=== PATIENT | male | born 2000 | race Caucasian/White ===

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

== ENCOUNTER 2024-02-09 02:27 | Emergency (ER) | payer OTHER ==
[~2024-02-09] VITALS: Ht 180.3 cm; Wt 83.9 kg
[~2024-02-09 02:27] MED LIST changes: +Zofran Odt4 MG PO
[2024-02-09] MEDS ORDERED: AIRSUPRA 90-810.7 GM INH (02:51)
[2024-02-09] MEDS ORDERED: Ondansetron HCl 2 MG / ML 2ML Vial IV ONE (02:55)
[2024-02-09] MEDS ORDERED: NS 1,000 ML IV SCH (02:55)
[2024-02-09] MEDS ORDERED: Ketorolac Tromethamine 30mg Vial IV ONE (03:25)
[2024-02-09 03:26] LABS: BASOPHILS ABSOLUTE AUTO 0.04 K/mm3 (0.00-0.23); BASOPHILS PERCENT AUTO 1 % (0-2); EOSINOPHILS ABSOLUTE AUTO 0.33 K/mm3 (0.00-0.68); EOSINOPHILS PERCENT AUTO 4 % (0-6); Hematocrit 42.8 % (37.0-53.0); Hemoglobin 14.8 g/dL (13.5-17.5); IMMATURE GRAN ABSOLUTE AUTO 0.07 K/mm3 (0.00-0.10); IMMATURE GRAN PERCENT AUTO 1 % (0-1); LYMPHOCYTES PERCENT AUTO 34 % (21-46); MONOCYTES ABSOLUTE AUTO 0.34 K/mm3 (0.16-1.47); MONOCYTES PERCENT AUTO 4 % (4-13); Mean Corpuscular HGB 28.6 pg (26.0-34.0); Mean Corpuscular HGB Conc 34.6 g/dL (31.5-36.5); Mean Corpuscular Volume 83 fL (80-100); Mean Platelet Volume 8.7 fL (9.1-12.4); NEUTROPHILS PERCENT AUTO 57 % (41-73); Platelet Count 256 K/mm3 (150-400); RDW Coefficient Variation 11.9 % (11.7-14.2); Red Blood Cell Count 5.17 M/mm3 (4.30-5.90); White Blood Cell Count 8.58 K/mm3 (4.00-11.30)
[2024-02-09 03:45] LABS: Albumin/Globulin Ratio 1.1 (0.8-1.8); Bilirubin, Direct 0.1 mg/dL (0.0-0.3); Bilirubin, Indirect 0.3 mg/dL (0.1-0.7); Bilirubin, Total 0.4 mg/dL (0.1-1.0); Bun/Creatinine Ratio 22.7 (12.0-20.0); Creatinine, Blood 0.71 mg/dL (0.60-1.20); Globulin, Blood 3.6 g/dL (2.2-4.0); Potassium, Blood 3.9 mmol/L (3.5-5.5); Total Protein, Blood 7.6 g/dL (6.4-8.2)
[2024-02-09 04:30] VITALS: BP 125/98
[2024-02-09] MEDS ORDERED: ONDA4ODT MM ×2 (04:42→04:59)
== END 2024-02-09 04:59 | disposition home or self-care (01) ==
LOC: ER 02:27
PROVIDERS: Student in an Organized Health Care Education/Training Program
DX: A08.4 Viral intestinal infection, unspecified (principal); E86.0 Dehydration; Z79.899 Other long term (current) drug therapy; Z88.0 Allergy status to penicillin
CPT/HCPCS: 80053; 82248; 83735; 85025; 96374; 96375; 99284-25; J1885; J2405; J7030